=== PATIENT | female | born 1955 | race Caucasian/White ===

== ENCOUNTER → 2017-11-06 | Outpatient (CLI) | payer OTHER, MEDICAID ==
[2013-09-21 11:39] VITALS: BP 122/70
[2017-11-06 11:12] LABS: BASOPHILS # (AUTO) 0.1 X10^3/uL (0.0-0.1); EOSINOPHILS # (AUTO) 0.1 x10^3/uL (0.0-0.2); EOSINOPHILS % (AUTO) 1.2 % (0.9-2.9); HEMATOCRIT 43.3 % (36.0-47.0); HEMOGLOBIN 14.7 g/dL (12.0-16.0); LYMPHOCYTES # (AUTO) 2.1 X10^3/uL (1.3-2.9); MEAN CORPUSCULAR HEMOGLOBIN 31.8 pg (27.0-34.0); MEAN CORPUSCULAR VOLUME 93.7 fL (80.0-100.0); MEAN PLATELET VOLUME 8.7 fL (7.4-11.0); MONOCYTES # (AUTO) 0.6 x10^3/uL (0.3-0.8); MONOCYTES % (AUTO) 6.9 % (0.0-13.0); NEUTROPHILS # (AUTO) 5.2 x10^3/uL (2.2-4.8); NEUTROPHILS % (AUTO) 64.9 % (42.0-75.0); PLATELET COUNT 182 X10^3/uL (150.0-450.0); RED BLOOD COUNT 4.62 X10^6/uL (3.5-5.4); RED CELL DISTRIBUTION WIDTH 14.6 % (11.6-16.5); WHITE BLOOD COUNT 8.1 X10^3/uL (3.6-10.0)
--- NOTE | 2017-11-06 11:19 | MRI ---
HISTORY: Low back pain radiating into bilateral lower extremities Study: MRI lumbar spine without contrast Comparison: None Technique: Multiplanar multi-sequence MRI of the lumbar spine was obtained. Sagittal T1, sagittal T2 , and stir weighted images, axial T1, and axial T2 images were obtained. Findings: Imaging of the lumbar spine demonstrates mild, grade 1, retrolisthesis of L4 on L5, likely secondary to advanced facet arthropathy and degenerative disc disease at this level. There is moderate leftward curvature of the lumbar spine noted. There is a mild compression deformity involving the L4 superior endplate with approximately 10% loss of vertebral body height centrally. T2/STIR hyperintense signal parallels the depressed L4 superior endplate, suggesting that the compression fracture is acute to e catalino subacute in age. T2/STIR hyperintense signal paralleling the L4 superior endplate could also rep resent reactive edema associated with spondylosis with advanced degenerative endplate change. There i s also reactive edema associated with advanced degenerative endplate change paralleling the L3 inferi or endplate. Mild reactive edema is also identified within the L5 superior endplate. The conus termin ates at the L2 level. Evaluation of the pre and paravertebral soft tissues is unremarkable. There saira ears to be a 1.7 cm T2 hyperintense nodule within the right adrenal gland, possibly representing an a drenal adenoma. However, correlation with adrenal protocol CT versus MRI is recommended when feasible . T12 -- L1: At the T12-L1 level there is advanced facet hypertrophy and ligamentum flavum thickening w ithout significant canal stenosis or neuroforaminal compromise. L1 -- L2: At the L1-L2 level there is a broad-based disc bulge as well as advanced facet hypertrophy and ligamentum flavum thickening, resulting in [id number] canal stenosis as well as moderate ne uroforaminal compromise on the right and mild neuroforaminal compromise on the left. L2 -- L3: At the L2-L3 level there is a right lateral recess disc protrusion superimposed upon a broa d-based disc bulge as well as advanced facet hypertrophy and ligamentum flavum thickening, all result ing in moderate canal stenosis as well as moderate neuroforaminal compromise on the right and mild-to -moderate neuroforaminal compromise on the left. L3 -- L4: At the L3-L4 level there is a broad-based disc bulge as well as advanced facet hypertrophy and ligamentum flavum thickening, all resulting in moderate canal stenosis as well as moderate to sev ere neuroforaminal compromise on the right and mild neuroforaminal compromise on the left. L4 -- L5: At the L4-L5 level there is a large left paracentral and left lateral recess disc protrusio n superimposed upon a broad-based disc bulge as well as advanced facet hypertrophy and ligamentum fla vum thickening, all resulting in moderate to severe canal stenosis as well as severe neuroforaminal c ompromise on the left and severe left lateral recess stenosis. There is also moderate neuroforaminal compromise on the right. L5 -- S1: At the L5-S1 level there is a broad-based disc bulge as well as advanced facet hypertrophy and ligamentum flavum thickening, resulting in mild canal stenosis as well as moderate neuroforaminal compromise on the left and mild neuroforaminal compromise on the right. IMPRESSION: 1. Multilevel advanced facet arthropathy and multilevel degenerative disc disease as detailed above, most significant at the L4-L5 level, where there is severe neuroforaminal compromise on the left and severe left lateral recess stenosis as well as moderate to severe canal stenosis and moderate neurofo raminal compromise on the right. 2. Compression deformity involving the L4 superior endplate. Please see above discussion. Reported By:
[2017-11-06 11:21] LABS: CREATININE,URINE 177.02 mg/dL (29-226); MICROALBUMIN,URINE 15.5 mg/L
[2017-11-06 11:27] LABS: ALANINE AMINOTRANSFERASE 27 Units/L (12-78); ALKALINE PHOSPHATASE 91 Units/L (46-116); ASPARTATE AMINO TRANSFERASE 16 Units/L (15-37); BLOOD UREA NITROGEN 13 mg/dL (7-18); CALCIUM 8.9 mg/dL (8.5-10.1); CARBON DIOXIDE 29.7 mmol/L (21-32); CHLORIDE 101 mmol/L (98-107); CHOL/HDL RATIO 4.7 (0.0-5.0); CHOLESTEROL 212 mg/dL (0-200); COR NA(FOR HYPERGLY) 142 mmol/L (136-145); CREATININE 0.84 mg/dL (0.55-1.02); HDL CHOLESTEROL 45 mg/dL (40-60); SODIUM 139 mmol/L (136-145); TRIGLYCERIDES 154 mg/dL (0-150); eGFR BLACK RACES > 60 (>60); eGFR NON BLACK RACES > 60 (>60)
--- NOTE | 2017-11-06 11:44 | MRI ---
HISTORY: Neck pain that radiates into bilateral upper extremities Study: MRI cervical spine without contrast Comparison: None Technique: Multiplanar multisequence MRI of the cervical spine was obtained utilizing standard [facility] protocol. Findings: Imaging of cervical spine demonstrates very mild, grade 1, anterolisthesis of C4 on C5. There is also minimal retrolisthesis of C5 on C6 as well. There is loss of the normal cervical lordosis which may be secondary to patient positioning versus muscle spasm and/or degenerative change or combination of both. Moderate to severe loss of disc space height is present at the C5-C6 level and moderate loss of disc space height is present at the C6-C7 level. There are advanced degenerative endplate changes at these levels as well. Mild reactive edema associated with degenerative endplate change is also visua lized at the C6-C7 level. There is abnormal T2/STIR hyperintense signal within the right and left asp ects of the dorsal cervical cord at the C5 level. Additional abnormal foci of T2/STIR hyperintense si gnal are identified within the right and left aspects of the cord at the C6 level. This abnormal cerv ical cord signal could reflect spondylitic myelomalacia given spondylosis at these levels. Demyelinat ing disease is less favored but not entirely excluded. Evaluation of the pre and paravertebral soft t issues is unremarkable. The visualized posterior fossa is grossly unremarkable as well. Degenerative changes involving the atlantoaxial joint are incidentally noted. C2 -- C3: At the C2-C3 level there is very mild facet hypertrophy without significant canal stenosis or neuroforaminal compromise. C3 -- C4: At the C3-C4 level there is minimal right facet hypertrophy without significant canal steno sis or neuroforaminal compromise. C4 -- C5: At the C4-C5 level there is a small left paracentral disc osteophyte which, along with mild listhesis at this level, is resulting in very mild canal stenosis. C5 -- C6: At the C5-C6 level there is a broad-based disc osteophyte complex and uncovertebral spurrin g which, along with listhesis at this level, are resulting in moderate canal stenosis with effacement of the ventral epidural space and flattening of the cervical cord. There is also moderate to severe bilateral neuroforaminal compromise. The above described abnormal T2/STIR hyperintense signal within the cervical cord is located just below and just above this level of stenosis. C6 -- C7: At the C6-C7 level there is a rather large left lateral recess disc osteophyte or disc prot rusion superimposed upon broad-based disc ridging and uncovertebral spurring, resulting in moderate t o severe neuroforaminal compromise on the left and rstl-[id number] canal stenosis. C7 -- T1: At the C7-T1 level there is uncovertebral spurring and broad-based disc ridging as well as mild facet hypertrophy, resulting in minimal neuroforaminal compromise on the right but no significan t canal stenosis. IMPRESSION: 1. Multilevel degenerative disc disease and facet arthropathy as detailed above, most significant at the C5-C6 level, where there is moderate canal stenosis as well as moderate to severe bilateral neuro foraminal compromise. There is abnormal T2/STIR hyperintense signal within the cervical cord just abo ve and just below this level of canal stenosis, suggesting that the abnormal cord signal likely refle cts spondylitic myelomalacia. Moderate to severe neuroforaminal compromise on the left and mild-to-mo derate canal stenosis are also noted at the C6-C7 level. Reported By:
--- NOTE | 2017-11-06 11:53 | RAD ---
HISTORY: Neck pain Study: Three views of the cervical spine Comparison: None Findings: Images demonstrate straightening with slight reverse curvature of the cervical spine. Minimal grade 1 retrolisthesis of C5 on C6 is noted. Degenerate facet changes are seen throughout the cervical spine . Intervertebral disc space narrowing is noted at C5/C6 and C6/C7. Mild multilevel osteophytosis is d emonstrated as well. The odontoid is partially obscured. IMPRESSION: 1. Degenerative changes as noted above. Reported By:
[2017-11-06 11:58] LABS: ERYTHROCYTE SEDIMENTATION RATE 13 MM/HOUR (0-20)
--- NOTE | 2017-11-06 12:18 | RAD ---
HISTORY: Back pain Study: Three views of the lumbar spine Comparison: MRI of the lumbar spine also performed today on November 06, 2017 Findings: Images demonstrate 5 [id number] lumbar vertebral bodies. A mild compression deformity of the L4 vertebral body is noted. See report from accompanying MRI of the lumbar spine also performed today on November 06, 2017 for further discussion. Otherwise the remaining lumbar vertebral body heights are rel atively maintained. Degenerate facet changes are seen throughout the lumbar spine. Multilevel interve rtebral disc space narrowing is noted and is most pronounced at L3/L4, L4/L5, and L5/S1. Mild multile leanna osteophytosis is also noted. Atherosclerotic changes are seen within the visualized aorta. IMPRESSION: Mild compression deformity of the L4 vertebral body as noted above. Multilevel degenerative changes as discussed above. Reported By:
--- NOTE | 2017-11-06 12:21 | RAD ---
HISTORY: Pain Study: Three views of the thoracic spine Comparison: None Findings: Images demonstrate 12 rib-bearing thoracic vertebral bodies. The thoracic vertebral body heights are relatively maintained. No evidence of significant subluxation is identified. Mild degenerate facet ch anges are seen throughout the thoracic spine. IMPRESSION: 1. Mild degenerative changes as noted above. Reported By:
== END | disposition home or self-care (01) | DRG 554 ==
LOC: RAD 08:35
PROVIDERS: ATTEND Nurse Practitioner Family
DX: M15.8 Other polyosteoarthritis (principal); E11.9 Type 2 diabetes mellitus without complications; M51.36 Other intervertebral disc degeneration, lumbar region; M50.322 Other cervical disc degeneration at C5-C6 level; R79.82 Elevated C-reactive protein (CRP); M54.5 Low back pain
CPT/HCPCS: 36415; 72040; 72072; 72100; 72141; 72148; 80053; 80061; 82043; 85025; 85652; 86140

== ENCOUNTER 2021-03-20 21:25 | Inpatient (IN) ==
[2021-03-20 21:50] VITALS: BMI 22.2
[2021-03-20 22:36] LABS: ABG ALLEN TEST POS; ABG BASE EXCESS 1.1 mmol/L (-2.0-2.0); ABG HCO3 25.1 mmol/L (22-26)
--- NOTE | 2021-03-20 22:39 | DR.URIAD ---
HPI Time Seen Time Seen by Provider: 03/20/21 22:39 PCP Primary Care Physician: jamal Complaint Chief Complaint Doctors Comments: INCREASING WEAKNESS, COUGH AND SOB TIMES SEVERAL DAYS. Chief Complaint:: COUGH, DIARRHEA, WEAK SINCE LAST FRIDAY. SAW MD ON LAST FRIDAY. FINISHED Z RICHARD AND PREDNISONE. UNKNOWN COVID STATUS Self Treatment fo Chief Complaint: MEDS GIVEN BY COVID-19 Coronavirus risk:travel/contact w/high risk person: Yes Has patient experienced Coronavirus symptoms: Yes Coronavirus symptoms experienced: Coughing and Shortness of Breath Reviewed Nurses Notes Reviewed: Yes Source History Provided: Patient Mode of Arrival Mode of Arrival: Wheelchair Timing Onset of Chief Complaint: 03/10/21 Quality Shortness of Breath: Moderate PMH PMH Past Medical History: Yes Past Medical History: Diabetes Past Medical History Comment: CANCER, COLON, LIVER, LUNG, Past Surgical History: Yes Surgical History: Cholecystectomy Past Surgical History Comment: PART OF RT LUNG REMOVED. LIVER SECTIONS REMOVED. COLON RESECTION Family History History of Family Medical Conditions: Yes Social History Does patient currently use any type of tobacco product: Yes Have you used tobacco products in the last 12 months: Yes Type of Tobacco Use: Cigarettes Does any household member use tobacco: Yes Alcohol Use: None Do you use any recreational Drugs:: No Lives With: Family Lives Where: Home Travel Risk Coronavirus risk:travel/contact w/high risk person: Yes Has patient experienced Coronavirus symptoms: Yes Coronavirus symptoms experienced: Coughing and Shortness of Breath Infectious screening In the last 2 months have you had wt loss of >10#?: NO Have you had fever, night sweats or hemotysis?: No Have you traveled outside the country in the last 6 months?: No Isolation: Airborn/Negative Pressure ROS Review of Systems Constitutional: No Symptoms Reported and See HPI Eyes: No Symptoms Reported and See HPI ENTM: No Symptoms Reported and See HPI Respiratoy: No Symptoms Reported and See HPI Cardiovascular: No Symptoms Reported and See HPI Gastrointestinal/Abdominal: No Symptoms Reported and See HPI Genitourinary: No Symptoms Reported and See HPI Neurological: No Symptoms Reported and See HPI Musculoskeletal: No Symptoms Reported and See HPI Integumentary: No Symptoms Reported and See HPI Hematologic/Lymphatic: No Symptoms Reported and See HPI Endocrine: No Symptoms Reported and See HPI Psychiatric: No Symptoms Reported and See HPI All Other Systems: Reviewed and Negative PE Vital Signs Vitals: Temperature 98.6 F Pulse Rate [Right] 96 Pulse Rate 92 Respiratory Rate 28 Blood Pressure [Right Arm] 173/77 Blood Pressure 149/70 O2 Sat by Pulse Oximetry 91 General Limitations: No Limitations General Appearance: Alert and In No Apparent Distress Head Head Exam: Normal Inspection Eyes Eye exam: Normal Appearance ENT ENT Exam: Normal Exam External Ear Exam: Normal External Inspection TM/Canal Exam: Bilateral: Normal Nose Exam: Normal Nose Exam Nasal Speculum Exam: Bilateral: Normal Mouth Exam: Normal Inspection Throat Exam: Normal Inspection Neck Neck Exam: Normal Inspection Chest Chest Inspection: Normal Inspection Respiratory Respiratory Exam: Normal Lung Sounds Bilat Respiratory Exam: Bilateral: Clear to Auscultation Cardiovascular Cardiovascular Exam: Regular Rate and Normal Rhythm Abdominal Exam Abdominal Exam: Normal Inspection, Normal Bowel Sounds and Soft Extremeties Extremities Exam: Normal Inspection Back Back Exam: Normal Inspection Neurologic Neurological Exam: Alert and Oriented X3 Psychiatric Psychiatric Exam: Normal Affect and Normal Mood Skin Skin Exam: Warm, Dry, Intact and Normal Color ROR Labs Reviewed Result Diagrams: 03/20/21 22:55 03/20/21 22:55 Laboratory: WBC 9.2 X10^3/uL (3.6-10.0) 03/20/21 22:55 RBC 4.40 X10^6/uL (3.5-5.4) 03/20/21 22:55 Hgb 14.0 g/dL (12.0-16.0) 03/20/21 22:55 Hct 41.3 % (36.0-47.0) 03/20/21 22:55 MCV 93.7 fL (80.0-100.0) 03/20/21 22:55 MCH 31.8 pg (27.0-34.0) 03/20/21 22:55 MCHC 33.9 g/dL (33.0-35.0) 03/20/21 22:55 RDW 14.7 % (11.6-16.5) 03/20/21 22:55 Plt Count 201 X10^3/uL (150.0-450.0) 03/20/21 22:55 MPV 8.7 fL (7.4-11.0) 03/20/21 22:55 Neut % (Auto) 81.1 % (42.0-75.0) H 03/20/21 22:55 Lymph % (Auto) 10.4 % (21.0-51.0) L 03/20/21 22:55 Ramsey % (Auto) 8.3 % (0.0-13.0) 03/20/21 22:55 Eos % (Auto) 0.1 % (0.9-2.9) L 03/20/21 22:55 Baso % (Auto) 0.1 % (0.2-1.0) L 03/20/21 22:55 Neut # (Auto) 7.5 x10^3/uL (2.2-4.8) H 03/20/21 22:55 Lymph # (Auto) 1.0 X10^3/uL (1.3-2.9) L 03/20/21 22:55 Ramsey # (Auto) 0.8 x10^3/uL (0.3-0.8) 03/20/21 22:55 Eos # (Auto) 0.0 x10^3/uL (0.0-0.2) 03/20/21 22:55 Baso # (Auto) 0.0 X10^3/uL (0.0-0.1) 03/20/21 22:55 Absolute Nucleated RBC 0.0 /100WBC 03/20/21 22:55 D-Dimer 1.52 ug/ml (0.0-0.57) H* 03/20/21 22:55 Sample Site Lr 03/20/21 22:32 ABG pH 7.440 (7.35-7.45) 03/20/21 22:32 ABG pCO2 37.0 mmHg (35.0-45.0) 03/20/21 22:32 ABG pO2 50.0 mmHg (80.0-100.0) L 03/20/21 22:32 ABG HCO3 25.1 mmol/L (22-26) 03/20/21 22:32 ABG O2 Saturation 87.0 % (90-100) L 03/20/21 22:32 ABG Base Excess 1.1 mmol/L (-2.0-2.0) 03/20/21 22:32 Say Test Pos 03/20/21 22:32 A-a Gradient 53.0 mmHg 03/20/21 22:32 FiO2 21.0 03/20/21 22:32 Blood Gas Comments Maribell well ae 03/20/21 22:32 Sodium 134 mmol/L (136-145) L 03/20/21 22:55 Corrected Sodium 139 mmol/L (136-145) 03/20/21 22:55 Potassium 3.3 mmol/L (3.5-5.1) L 03/20/21 22:55 Chloride 95 mmol/L (98-107) L 03/20/21 22:55 Carbon Dioxide 24.9 mmol/L (21-32) 03/20/21 22:55 BUN 22 mg/dL (7-18) H 03/20/21 22:55 Creatinine 0.88 mg/dL (0.55-1.02) 03/20/21 22:55 Est GFR (MDRD) Af Amer > 60 (>60) 03/20/21 22:55 Est GFR (MDRD) Non-Af > 60 (>60) 03/20/21 22:55 Glucose 319 mg/dL (65-99) H 03/20/21 22:55 Calcium 8.8 mg/dL (8.5-10.1) 03/20/21 22:55 Corrected Calcium 9.9 mg/dL (8.5-10.1) 03/20/21 22:55 Ferritin 1318 ng/mL (8-252) H 03/20/21 22:55 Total Bilirubin 0.70 mg/dL (0.2-1.0) 03/20/21 22:55 AST 23 Units/L (15-37) 03/20/21 22:55 ALT 21 Units/L (12-78) 03/20/21 22:55 Alkaline Phosphatase 52 Units/L (46-116) 03/20/21 22:55 C-Reactive Protein 281.30 mg/L (0-3.0) H 03/20/21 22:55 B-Natriuretic Peptide 242 pg/mL (0-79) H 03/20/21 22:55 Total Protein 7.4 g/dL (6.4-8.2) 03/20/21 22:55 Albumin 2.6 g/dL (3.4-5.0) L 03/20/21 22:55 Globulin 4.8 g/dL (2.5-4.5) H 03/20/21 22:55 Albumin/Globulin Ratio 0.5 Ratio (1.1-2.1) L 03/20/21 22:55 Opioid Opioid Risk Tool Age (Bradley box if 16-45): No History of Preadolescent Sexual Abuse: No Total: 0 Total Score Risk Category: Low Risk Copyright: Monk predicting aberrant behaviors Diagnosis Discharge Problem: Hypoxia Pneumonia Qualifiers: Pneumonia type: due to unspecified organism Laterality: bilateral Lung location : lower lobe of lung Qualified Code(s): J18.9 - Pneumonia, unspecified organism Instructions Forms: Precautions for COVID19 [facility] Portal Social Distancing
[2021-03-20 23:18] LABS: BASOPHILS % (AUTO) 0.1 % (0.2-1.0); EOSINOPHILS % (AUTO) 0.1 % (0.9-2.9); HEMATOCRIT 41.3 % (36.0-47.0); LYMPHOCYTES % (AUTO) 10.4 % (21.0-51.0); MEAN CORPUSCULAR HEMOGLOBIN 31.8 pg (27.0-34.0); MEAN CORPUSCULAR HGB CONC 33.9 g/dL (33.0-35.0); MEAN CORPUSCULAR VOLUME 93.7 fL (80.0-100.0); MEAN PLATELET VOLUME 8.7 fL (7.4-11.0); MONOCYTES # (AUTO) 0.8 x10^3/uL (0.3-0.8); MONOCYTES % (AUTO) 8.3 % (0.0-13.0); NEUTROPHILS # (AUTO) 7.5 x10^3/uL (2.2-4.8); NEUTROPHILS % (AUTO) 81.1 % (42.0-75.0); PLATELET COUNT 201 X10^3/uL (150.0-450.0); RED CELL DISTRIBUTION WIDTH 14.7 % (11.6-16.5); WHITE BLOOD COUNT 9.2 X10^3/uL (3.6-10.0)
[2021-03-20 23:29] LABS: ALANINE AMINOTRANSFERASE 21 Units/L (12-78); ALBUMIN 2.6 g/dL (3.4-5.0); ALKALINE PHOSPHATASE 52 Units/L (46-116); ASPARTATE AMINO TRANSFERASE 23 Units/L (15-37); BLOOD UREA NITROGEN 22 mg/dL (7-18); CALCIUM 8.8 mg/dL (8.5-10.1); CARBON DIOXIDE 24.9 mmol/L (21-32); CHLORIDE 95 mmol/L (98-107); COR CA(FOR HYPOALB) 9.9 mg/dL (8.5-10.1); COR NA(FOR HYPERGLY) 139 mmol/L (136-145); CREATININE 0.88 mg/dL (0.55-1.02); SODIUM 134 mmol/L (136-145); TOTAL PROTEIN 7.4 g/dL (6.4-8.2); eGFR NON BLACK RACES > 60 (>60)
--- NOTE | 2021-03-21 01:56 | CT ---
HISTORYSOB, ELEVATED D-DIMERSTUDYCTA CHESTCOMPARISONChest radiograph 03/20/2021TECHNIQUEMultiple axial images of the chest were obtained from the thoracic inlet to the upper abdomen after the administration of IV contrast. 3D reconstructions utilizing axial MIPS imaging was performed and reviewed. Dose reduction techniques including Automated Exposure Control (AEC) and adjustment of mA and kV were utilized.FINDINGSThe mediastinum does not demonstrate significant pathological lymphadenopathy. There is no paracardial effusion observed. Coronary artery calcification. The thoracic aorta is normal in its contour without evidence for aneurysmal dilatation. The central pulmonary arterial system does not demonstrate central filling defects to suggest pulmonary emboli.Evaluation of the lung parenchyma demonstrates marked emphysematous changes throughout the lungs. Atelectasis and/or consolidation involving portions of the a left lingular and left lower lobes. A there are patchy parenchymal opacities within the right and left lower lobes. Parenchymal scarring and calcification noted within the right upper lobe. No pleural effusion or pneumothorax.. The bony thorax is unremarkable in its appearance. Low-attenuation lesion with peripheral calcification present within the right lobe of the liver..IMPRESSIONUnremarkable CTA of the thoracic aorta and pulmonary arteries.Emphysematous changes throughout the lungs.Atelectasis and/or consolidation involving portions of the left lingular and left lower lobes.Patchy parenchymal opacities within the right and left lower lobe consistent with multifocal pneumonia.Chronic pleural parenchymal scarring fibrosis and calcification within the right upper lobe.Low-attenuation lesion with peripheral calcification within the right lobe of the liver. Finding may be related to prior surgery or known hepatic neoplasm. Comparison with prior studies would be helpful in further evaluation.Electronically signed by: Channing Mcpherson (Mar 21, 2021 01:54:45)
[2021-03-21] MEDS ORDERED: DUONEB 0.5 MG/3 MG (3 mL) NEB ONE ×2 (02:39→02:51)
[2021-03-21] MEDS ORDERED: SOLU-Medrol 125 MG VIAL IVP ONE (02:39)
[2021-03-21] MEDS ORDERED: FORTAZ or TAZICEF VIAL INJ IM ONE (02:41)
[2021-03-21] MEDS ORDERED: FORTAZ or TAZICEF VIAL INJ ONE (02:46)
[2021-03-21] MEDS ORDERED: SOLU-Medrol 125 MG VIAL ONE (02:46)
[2021-03-21] MEDS ORDERED: NS 1/2 1000 ML IV 1,000 ML IV ONE (02:47)
[2021-03-21] MEDS ORDERED: NS 100 ML IV + SPIKE MINIBAG* 100 ML IV ONE (02:49)
[2021-03-21] MEDS ORDERED: FORTAZ or TAZICEF VIAL INJ 1 G in NS 100 ML IV + SPIKE MINIBAG* 100 ML IV ONE (02:52)
[2021-03-21] MEDS: NS 1/2 1000 ML IV 1,000 ML IV SCH ×2 (03:06→16:45)
--- NOTE | 2021-03-21 05:08 | RAD ---
HISTORYSOB, DIARRHEA, FATIGUE Relevant Clinical InformationSTUDYCHEST, 1 VIEWCOMPARISONNoneFINDINGSThe trachea is midline. The cardiac silhouette is unremarkable. Patchy parenchymal opacity within the right and left lower lung james. There is parenchymal scarring within the right upper lobe. No pneumothorax. The bony thorax is unremarkable.IMPRESSIONPatchy infiltrates within the right and left lung bases.Electronically signed by: Channing Mcpherson (Mar 21, 2021 05:06:45)
[2021-03-21] MEDS ORDERED: TUSSIONEX PENNKINETIC SUSP PO PRN (06:06)
[2021-03-21 06:52] LABS: BASOPHILS % (AUTO) 0.2 % (0.2-1.0); LYMPHOCYTES # (AUTO) 0.4 X10^3/uL (1.3-2.9); LYMPHOCYTES % (AUTO) 4.1 % (21.0-51.0); MEAN CORPUSCULAR HGB CONC 34.1 g/dL (33.0-35.0); MEAN CORPUSCULAR VOLUME 93.8 fL (80.0-100.0); MEAN PLATELET VOLUME 8.2 fL (7.4-11.0); MONOCYTES # (AUTO) 0.3 x10^3/uL (0.3-0.8); MONOCYTES % (AUTO) 3.6 % (0.0-13.0); NEUTROPHILS # (AUTO) 8.9 x10^3/uL (2.2-4.8); NEUTROPHILS % (AUTO) 92.1 % (42.0-75.0); PLATELET COUNT 195 X10^3/uL (150.0-450.0); RED BLOOD COUNT 4.37 X10^6/uL (3.5-5.4); RED CELL DISTRIBUTION WIDTH 14.7 % (11.6-16.5); WHITE BLOOD COUNT 9.6 X10^3/uL (3.6-10.0)
[2021-03-21 07:00] LABS: ALANINE AMINOTRANSFERASE 24 Units/L (12-78); ALKALINE PHOSPHATASE 54 Units/L (46-116); ASPARTATE AMINO TRANSFERASE 24 Units/L (15-37); BLOOD UREA NITROGEN 20 mg/dL (7-18); CALCIUM 8.8 mg/dL (8.5-10.1); CARBON DIOXIDE 19.5 mmol/L (21-32); CHLORIDE 95 mmol/L (98-107); COR NA(FOR HYPERGLY) 140 mmol/L (136-145); CREATININE 0.78 mg/dL (0.55-1.02); SODIUM 134 mmol/L (136-145); TOTAL PROTEIN 7.4 g/dL (6.4-8.2); eGFR NON BLACK RACES > 60 (>60)
[2021-03-21] MEDS ORDERED: NS 1/2 1000 ML IV 1,000 ML IV SCH (07:00)
[2021-03-21 07:19] LABS: ALBUMIN 2.4 g/dL (3.4-5.0); COR CA(FOR HYPOALB) 10.1 mg/dL (8.5-10.1)
[2021-03-21 07:25] LABS: BAND NEUTROPHILS % 7 % (0-10); PLATELET MORPHOLOGY COMMENT NORMAL (NORMAL)
[2021-03-21] MEDS ORDERED: LEVAQUIN PREMIX IV 750 MG 750 MG/150 ML BAG IV ONE (08:32)
[2021-03-21] MEDS ORDERED: ROBITUSSIN DM ONE ×3 (08:32→16:39)
[2021-03-21] MEDS: LEVAQUIN PREMIX IV 750 MG 750 MG/150 ML BAG IV SCH (08:46)
[2021-03-21] MEDS: ROBITUSSIN DM PO SCH ×4 (08:47→20:38)
[2021-03-21] MEDS: VSL#3 PO SCH (08:47)
[2021-03-21] MEDS: PULMICORT NEB TX 0.5 MG NEB SCH ×2 (09:15→21:35)
[2021-03-21] MEDS ORDERED: REMDESIVIR 200 MG in NS 250 ML IV 250 ML IV ONE (12:00)
[2021-03-21] MEDS ORDERED: VITAMIN A PO SCH (12:10)
[2021-03-21] MEDS ORDERED: VITAMIN D (1.25MG) PO SCH (12:10)
[2021-03-21] MEDS ORDERED: LOVENOX INJ 30 MG SYR SC SCH (12:10)
[2021-03-21] MEDS ORDERED: LOVENOX INJ 40 MG SYR SC ONE (12:40)
[2021-03-21] MEDS ORDERED: ZINC SULFATE ONE (12:40)
[2021-03-21] MEDS ORDERED: REMDESIVIR IV ONE (12:41)
[2021-03-21] MEDS ORDERED: SOLU-Medrol 40 MG VIAL ONE (12:41)
[2021-03-21] MEDS ORDERED: VITAMIN D3 125 mcg (5,000 UNITS) ONE (12:41)
[2021-03-21] MEDS ORDERED: TRICOR TAB 160 MG ONE (12:41)
[2021-03-21] MEDS ORDERED: PEPCID TAB 40 MG ONE (12:41)
[2021-03-21] MEDS ORDERED: NS 250 ML IV 250 ML IV ONE (12:42)
[2021-03-21] MEDS ORDERED: NS 100 ML IV 100 ML ONE (12:42)
[2021-03-21] MEDS ORDERED: ASCORBIC ACID INJ MULTI-DOSE VIAL IV ONE (12:42)
[2021-03-21] MEDS: ASCORBIC ACID INJ MULTI-DOSE VIAL 1,500 MG in NS 100 ML IV 100 ML IV SCH ×3 (12:53→20:38)
[2021-03-21] MEDS: LOVENOX INJ 40 MG SYR SC SCH ×2 (12:53→20:38)
[2021-03-21] MEDS: ZINC SULFATE PO SCH ×2 (12:54→20:39)
[2021-03-21] MEDS: PEPCID TAB 40 MG PO SCH ×2 (12:54→20:38)
[2021-03-21] MEDS: TRICOR TAB 160 MG PO SCH (12:54)
[2021-03-21] MEDS: VITAMIN D3 125 mcg (5,000 UNITS) PO SCH (12:55)
[2021-03-21] MEDS ORDERED: ACTEMRA 400 MG in NS 100 ML IV 80 ML IV ONE (13:45)
[2021-03-21] MEDS ORDERED: SOLU-Medrol 125 MG VIAL IVP SCH (14:00)
[2021-03-21] MEDS ORDERED: SOLU-Medrol 40 MG VIAL IVP SCH (14:00)
[2021-03-21] MEDS: ACCUNEB 1.25 MG NEBULE NEB SCH ×2 (14:10→21:35)
[2021-03-21] MEDS ORDERED: XANAX PO PRN (16:55)
[2021-03-21] MEDS ORDERED: NORCO 10/325 TAB PO PRN (16:55)
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
[2021-03-21] MEDS: HumuLIN R SUBCUT PRN ×2 (18:20→22:08)
[2021-03-21] MEDS ORDERED: SNACK - Diabetic Appropriate PO SCH (20:00)
[2021-03-21] MEDS: SNACK - Diabetic Appropriate PO SCH (20:37)
[2021-03-21] MEDS: SOLU-Medrol 125 MG VIAL IVP SCH (20:39)
[2021-03-22] MEDS: ASCORBIC ACID INJ MULTI-DOSE VIAL 1,500 MG in NS 100 ML IV 100 ML IV SCH ×4 (02:10→21:00)
[2021-03-22] MEDS: NS 1/2 1000 ML IV 1,000 ML IV SCH ×2 (05:01→18:17)
[2021-03-22 05:20] LABS: ALANINE AMINOTRANSFERASE 23 Units/L (12-78); ALBUMIN 2.4 g/dL (3.4-5.0); ALKALINE PHOSPHATASE 56 Units/L (46-116); ASPARTATE AMINO TRANSFERASE 20 Units/L (15-37); BLOOD UREA NITROGEN 24 mg/dL (7-18); CALCIUM 8.6 mg/dL (8.5-10.1); CARBON DIOXIDE 27.1 mmol/L (21-32); CHLORIDE 101 mmol/L (98-107); COR CA(FOR HYPOALB) 9.9 mg/dL (8.5-10.1); COR NA(FOR HYPERGLY) 141 mmol/L (136-145); CREATININE 0.89 mg/dL (0.55-1.02); SODIUM 137 mmol/L (136-145); TOTAL PROTEIN 6.9 g/dL (6.4-8.2); eGFR NON BLACK RACES > 60 (>60)
[2021-03-22 05:37] LABS: BASOPHILS % (AUTO) 0.1 % (0.2-1.0); HEMATOCRIT 37.2 % (36.0-47.0); HEMOGLOBIN 12.7 g/dL (12.0-16.0); LYMPHOCYTES # (AUTO) 0.6 X10^3/uL (1.3-2.9); LYMPHOCYTES % (AUTO) 9.8 % (21.0-51.0); MEAN CORPUSCULAR HEMOGLOBIN 31.6 pg (27.0-34.0); MEAN CORPUSCULAR HGB CONC 34.1 g/dL (33.0-35.0); MEAN CORPUSCULAR VOLUME 92.8 fL (80.0-100.0); MONOCYTES # (AUTO) 0.5 x10^3/uL (0.3-0.8); MONOCYTES % (AUTO) 8.2 % (0.0-13.0); NEUTROPHILS # (AUTO) 5.1 x10^3/uL (2.2-4.8); NEUTROPHILS % (AUTO) 81.9 % (42.0-75.0); PLATELET COUNT 218 X10^3/uL (150.0-450.0); RED BLOOD COUNT 4.02 X10^6/uL (3.5-5.4); RED CELL DISTRIBUTION WIDTH 14.6 % (11.6-16.5); WHITE BLOOD COUNT 6.3 X10^3/uL (3.6-10.0)
[2021-03-22] MEDS ORDERED: K-RIDER 10 MEQ/NS 100 ML 10 MEQ/100 ML BAG IV PRN (05:44)
[2021-03-22] MEDS: HumuLIN R SUBCUT PRN ×3 (05:44→21:30)
[2021-03-22] MEDS ORDERED: MAGNESIUM SULFATE 1 GRAM/100 mL PREMIX 1 GM/100 ML BAG IV PRN (05:44)
[2021-03-22] MEDS ORDERED: KLOR-CON PO PRN (05:44)
[2021-03-22] MEDS ORDERED: POTASSIUM CHL 40 MEQ/NS 0.45% 500 ML IV PRN (05:44)
[2021-03-22] MEDS ORDERED: POTASSIUM CHLORIDE LIQ 20 MEQ UDC PO PRN (05:44)
[2021-03-22] MEDS ORDERED: MICRO K EXTEN CAP 10 MEQ PO PRN (05:44)
[2021-03-22] MEDS ORDERED: POTASSIUM CHL 60 MEQ/NS 0.45% 500 ML IV PRN (05:44)
[2021-03-22] MEDS: K-DUR TAB 20 MEQ PO PRN (06:12)
[2021-03-22] MEDS: ACCUNEB 1.25 MG NEBULE NEB SCH ×3 (06:26→20:20)
--- NOTE | 2021-03-22 08:13 | RAD ---
HISTORYCOVID PNEUMONIASTUDYCHEST, 1 [id number] areas of opacity in the lung bases and left upper lung are consistent with bronchopneumonia. Including a linear area in the right upper lung. No significant change from 2 days ago.No pleural effusion or pneumothorax.Heart size is normal.Bones are unremarkable.IMPRESSION1. Unchanged bronchopneumoniaElectronically signed by: Stuart Mojica (Mar 22, 2021 08:11:20)
[2021-03-22] MEDS: LEVAQUIN PREMIX IV 750 MG 750 MG/150 ML BAG IV SCH (08:38)
[2021-03-22] MEDS: ROBITUSSIN DM PO SCH ×4 (08:41→21:00)
[2021-03-22] MEDS: VSL#3 PO SCH (08:42)
[2021-03-22] MEDS: TRICOR TAB 160 MG PO SCH (08:42)
[2021-03-22] MEDS: VITAMIN D3 125 mcg (5,000 UNITS) PO SCH (08:43)
[2021-03-22] MEDS: ZINC SULFATE PO SCH ×2 (08:44→21:00)
[2021-03-22] MEDS: PEPCID TAB 40 MG PO SCH ×2 (08:46→21:00)
[2021-03-22] MEDS: PULMICORT NEB TX 0.5 MG NEB SCH ×2 (09:10→20:20)
[2021-03-22] MEDS ORDERED: DIFLUCAN PO ONE (09:58)
[2021-03-22] MEDS: REMDESIVIR 100 MG in NS 250 ML IV 250 ML IV SCH (10:00)
[2021-03-22] MEDS: LOVENOX INJ 40 MG SYR SC SCH ×2 (10:00→21:00)
[2021-03-22] MEDS: SOLU-Medrol 125 MG VIAL IVP SCH ×2 (10:00→21:00)
--- NOTE | 2021-03-22 10:10 | PCM.PROG ---
Progress Note Progress Note for Day of Date of Exam: 03/22/21 Subjective Subjective: Pt is a 65 year old female past medical history of Breast/Colon cancer, Type 2 Diabetes mellitus, admitted for COVID-19 pneumonia with hypoxia. This morning she reports feeling better than yesterday. Her breathing has improved. She is currently utilizing 5L nasal cannula supplemental oxygen. She did receive Actemra 400mg x1 dose yesterday. Labs/imaging: Wbc 6.3, Hgb 12.7, Plt 218, Na 137, K 2.7, Creatinine 0.89, Glucose 273, A1c 8.7, CRP 281>199, CXR: Vague areas of opacity in the lung bases and left upper lung are consistent with bronchopneumonia. Including a linear area in the right upper lung. No significant change from 2 days ago. Pt is currently on pneumonia treatment protocol that includes: IVF 1/2 NS@30ml/h, Remdesivir, Solumedrol 80mg q12h, scheduled Bronchodilators, Antibiotics: IV Levaquin, immune supporting supplements, supplemental O2, SSI, I/S, Respiratory therapy consult, Pneumonia protocol. She has had significant hyperglycemia that is steroid induced. Will add Lantus 10 units along with her SSI as we continue IV Solumedrol. Continue to wean/titrate supplemental oxygen as tolerated. Will continue to monitor closely and follow up labs/imaging in the morning. Time spent on clinical assessment, reviewing labs and imaging, decision making, and documentation greater than 45 minutes. Past Medical Family Social History Past Med/Fam/Surg Hx: No changes since H&P Allergies: Allergies No Known Drug Allergies Allergy (Verified 03/20/21 23:09) Review of Systems ROS: No change since H&P Vital Signs and I&O's Vital Signs: Temperature 97.6 F Pulse Rate [Right] 58 Pulse Rate 75 Respiratory Rate 20 Blood Pressure [Right Arm] 128/59 Blood Pressure 149/67 O2 Sat by Pulse Oximetry 93 Intake and Output: Intake & Output 03/19/21 03/20/21 03/21/21 03/22/21 23:59 23:59 23:59 23:59 Intake Total 1900 / 1900 450 / 450 Balance 1900 / 1900 450 / 450 Physical Exam Oriented: Normal Eyes: Normal Ear: Normal Nose: Normal Throat: Normal Respiratory: Diminished and Rales Cardiovascular: Normal : Normal Auscultation: Bowel Sounds: Normal Tenderness: Normal Skin: Normal Musculoskeletal: Normal Psychiatric: Normal Mood Description: Calm Affect: Normal Speech Pattern: Clear and Appropriate Laboratory and Diagnostics Result Diagrams: 03/22/21 04:40 03/22/21 04:40 Labs: Laboratory WBC 6.3 X10^3/uL (3.6-10.0) 03/22/21 04:40 RBC 4.02 X10^6/uL (3.5-5.4) 03/22/21 04:40 Hgb 12.7 g/dL (12.0-16.0) 03/22/21 04:40 Hct 37.2 % (36.0-47.0) 03/22/21 04:40 MCV 92.8 fL (80.0-100.0) 03/22/21 04:40 MCH 31.6 pg (27.0-34.0) 03/22/21 04:40 MCHC 34.1 g/dL (33.0-35.0) 03/22/21 04:40 RDW 14.6 % (11.6-16.5) 03/22/21 04:40 Plt Count 218 X10^3/uL (150.0-450.0) 03/22/21 04:40 Plt Count Comment Adequate (ADEQUATE) 03/21/21 06:43 MPV 9.0 fL (7.4-11.0) 03/22/21 04:40 Neut % (Auto) 81.9 % (42.0-75.0) H 03/22/21 04:40 Lymph % (Auto) 9.8 % (21.0-51.0) L 03/22/21 04:40 [place] % (Auto) 8.2 % (0.0-13.0) 03/22/21 04:40 Eos % (Auto) 0.0 % (0.9-2.9) L 03/22/21 04:40 Baso % (Auto) 0.1 % (0.2-1.0) L 03/22/21 04:40 Neut # (Auto) 5.1 x10^3/uL (2.2-4.8) H 03/22/21 04:40 Lymph # (Auto) 0.6 X10^3/uL (1.3-2.9) L 03/22/21 04:40 [place] # (Auto) 0.5 x10^3/uL (0.3-0.8) 03/22/21 04:40 Eos # (Auto) 0.0 x10^3/uL (0.0-0.2) 03/22/21 04:40 Baso # (Auto) 0.0 X10^3/uL (0.0-0.1) 03/22/21 04:40 Absolute Nucleated RBC 0.0 /100WBC 03/22/21 04:40 Total Counted 100 03/21/21 06:43 Neutrophils % (Manual) 82 % (39-76) H 03/21/21 06:43 Band Neutrophils % 7 % (0-10) 03/21/21 06:43 Lymphocytes % (Manual) 9 % (13-43) L 03/21/21 06:43 Monocytes % (Manual) 2 % (4-9) L 03/21/21 06:43 Plt Morphology Comment Normal (NORMAL) 03/21/21 06:43 RBC Morphology Normal (NORMAL) 03/21/21 06:43 D-Dimer 1.52 ug/ml (0.0-0.57) H* 03/20/21 22:55 Sample Site Lr 03/20/21 22:32 ABG pH 7.440 (7.35-7.45) 03/20/21 22:32 ABG pCO2 37.0 mmHg (35.0-45.0) 03/20/21 22:32 ABG pO2 50.0 mmHg (80.0-100.0) L 03/20/21 22:32 ABG HCO3 25.1 mmol/L (22-26) 03/20/21 22:32 ABG O2 Saturation 87.0 % (90-100) L 03/20/21 22:32 ABG Base Excess 1.1 mmol/L (-2.0-2.0) 03/20/21 22:32 Say Test Pos 03/20/21 22:32 A-a Gradient 53.0 mmHg 03/20/21 22:32 FiO2 21.0 03/20/21 22:32 Blood Gas Comments Maribell well ae 03/20/21 22:32 Sodium 137 mmol/L (136-145) 03/22/21 04:40 Corrected Sodium 141 mmol/L (136-145) 03/22/21 04:40 Potassium 2.7 mmol/L (3.5-5.1) L* 03/22/21 04:40 Chloride 101 mmol/L (98-107) 03/22/21 04:40 Carbon Dioxide 27.1 mmol/L (21-32) 03/22/21 04:40 BUN 24 mg/dL (7-18) H 03/22/21 04:40 Creatinine 0.89 mg/dL (0.55-1.02) 03/22/21 04:40 Est GFR (MDRD) Af Amer > 60 (>60) 03/22/21 04:40 Est GFR (MDRD) Non-Af > 60 (>60) 03/22/21 04:40 Glucose 273 mg/dL (65-99) H 03/22/21 04:40 POC Glucose (mg/dL) 276 mg/dL (65-99) H 03/22/21 04:40 Hemoglobin A1c 8.7 % 03/21/21 06:43 Calcium 8.6 mg/dL (8.5-10.1) 03/22/21 04:40 Corrected Calcium 9.9 mg/dL (8.5-10.1) 03/22/21 04:40 Magnesium 2.5 mg/dL (1.7-2.9) 03/22/21 04:40 Ferritin 1318 ng/mL (8-252) H 03/20/21 22:55 Total Bilirubin 0.40 mg/dL (0.2-1.0) 03/22/21 04:40 AST 20 Units/L (15-37) 03/22/21 04:40 ALT 23 Units/L (12-78) 03/22/21 04:40 Alkaline Phosphatase 56 Units/L (46-116) 03/22/21 04:40 C-Reactive Protein 199.20 mg/L (0-3.0) H 03/22/21 04:40 B-Natriuretic Peptide 242 pg/mL (0-79) H 03/20/21 22:55 Total Protein 6.9 g/dL (6.4-8.2) 03/22/21 04:40 Albumin 2.4 g/dL (3.4-5.0) L 03/22/21 04:40 Globulin 4.5 g/dL (2.5-4.5) 03/22/21 04:40 Albumin/Globulin Ratio 0.5 Ratio (1.1-2.1) L 03/22/21 04:40 Plan (1) Pneumonia due to COVID-19 virus: Status: Acute Plan: ADMIT, SUPPLEMENTAL OXYGEN, NS AT 30 ML/HR, LEVAQUIN 750MG IV DAILY, REMDESIVIR 100MG IV DAILY, ASCORBIC ACID 1500MG IV Q6H, ALBUTEROL NEBS TID, PULMICORT NEBS BID, SOLU-MEDROL 80MG IV Q8H, LOVENOX 40MG SC Q12H, TRICOR 160MG PO DAILY, PEPCID 40MG PO BID, ROBITUSSIN DM 10ML PO QID, TUSSIONEX 5ML PO Q12H PRN, VSL 2 CAPS PO BID, VITAMIN A 10,000 UNITS PO DAILY, AND ZINC SULFATE 220MG PO BID. (2) Hypoxia: Status: Acute
[2021-03-22] MEDS: GLUCOPHAGE XR 24-HR PO SCH (11:00)
[2021-03-22] MEDS: LANTUS SC SCH (11:14)
[2021-03-22] MEDS: IMODIUM CAP 2 MG PO PRN ×2 (18:07→23:00)
[2021-03-22] MEDS: SNACK - Diabetic Appropriate PO SCH (20:00)
[2021-03-23] MEDS: ASCORBIC ACID INJ MULTI-DOSE VIAL 1,500 MG in NS 100 ML IV 100 ML IV SCH ×4 (03:24→20:08)
[2021-03-23] MEDS ORDERED: NS 1/2 1000 ML IV 1,000 ML IV ONE (04:10)
[2021-03-23] MEDS: NS 1/2 1000 ML IV 1,000 ML IV SCH ×3 (04:20→21:22)
[2021-03-23] MEDS: HumuLIN R SUBCUT PRN ×3 (06:09→21:24)
[2021-03-23] MEDS: ACCUNEB 1.25 MG NEBULE NEB SCH ×3 (06:43→20:32)
[2021-03-23 07:13] LABS: BASOPHILS % (AUTO) 0.1 % (0.2-1.0); HEMATOCRIT 37.8 % (36.0-47.0); HEMOGLOBIN 12.9 g/dL (12.0-16.0); LYMPHOCYTES # (AUTO) 0.6 X10^3/uL (1.3-2.9); LYMPHOCYTES % (AUTO) 5.9 % (21.0-51.0); MEAN CORPUSCULAR HEMOGLOBIN 31.7 pg (27.0-34.0); MEAN CORPUSCULAR HGB CONC 34.1 g/dL (33.0-35.0); MEAN PLATELET VOLUME 8.5 fL (7.4-11.0); MONOCYTES # (AUTO) 0.4 x10^3/uL (0.3-0.8); MONOCYTES % (AUTO) 3.6 % (0.0-13.0); NEUTROPHILS # (AUTO) 9.1 x10^3/uL (2.2-4.8); NEUTROPHILS % (AUTO) 90.4 % (42.0-75.0); PLATELET COUNT 222 X10^3/uL (150.0-450.0); RED BLOOD COUNT 4.07 X10^6/uL (3.5-5.4); RED CELL DISTRIBUTION WIDTH 14.9 % (11.6-16.5); WHITE BLOOD COUNT 10.1 X10^3/uL (3.6-10.0)
[2021-03-23 07:45] LABS: BAND NEUTROPHILS % 3 % (0-10)
[2021-03-23 07:46] LABS: PLATELET MORPHOLOGY COMMENT NORMAL (NORMAL)
[2021-03-23 07:49] LABS: ALANINE AMINOTRANSFERASE 20 Units/L (12-78); ALBUMIN 2.2 g/dL (3.4-5.0); ALKALINE PHOSPHATASE 77 Units/L (46-116); ASPARTATE AMINO TRANSFERASE 23 Units/L (15-37); BLOOD UREA NITROGEN 22 mg/dL (7-18); CALCIUM 8.6 mg/dL (8.5-10.1); CARBON DIOXIDE 25.9 mmol/L (21-32); CHLORIDE 106 mmol/L (98-107); COR NA(FOR HYPERGLY) 145 mmol/L (136-145); CREATININE 0.67 mg/dL (0.55-1.02); SODIUM 140 mmol/L (136-145); TOTAL PROTEIN 6.3 g/dL (6.4-8.2); eGFR NON BLACK RACES > 60 (>60)
[2021-03-23] MEDS ORDERED: REMDESIVIR IV ONE (07:52)
[2021-03-23] MEDS ORDERED: NS 100 ML IV 100 ML ONE (07:54)
--- NOTE | 2021-03-23 08:09 | RAD ---
HISTORYPNEUMONIA F/U PMH:DIABETES, HX OF LUNG, LIVER, CERVICAL AND COLON CX PSH:TONSILS, LUNG, COLON, GB, LIVER, C-SEC X 2STUDYCHEST, 1 VIEWCOMPARISONPortable chest March 22FINDINGSThe trachea is midline. The cardiac silhouette is unremarkable. There are bibasilar infiltrates with mild worsening in the right lung base but mild improvement in the left lower lung field compared to yesterday's study. There is no effusion or pneumothorax. Stable linear parenchymal scarring is seen in the right upper lobe.. The bony thorax is unremarkable.IMPRESSIONBibasilar infiltrates with mild worsening in the right lung base mild improvement in the left lung base compared to yesterdays study there is no change in the linear density which may be parenchymal scarring in the right upper lung field.Electronically signed by: DELMIS WILEY (Mar 23, 2021 08:06:49)
[2021-03-23] MEDS: PULMICORT NEB TX 0.5 MG NEB SCH ×2 (08:20→20:32)
[2021-03-23] MEDS ORDERED: CULTURELLE PRO-WELL PROBIOTIC CAP PO SCH (09:00)
[2021-03-23] MEDS: GLUCOPHAGE XR 24-HR PO SCH (09:21)
[2021-03-23] MEDS: LOVENOX INJ 40 MG SYR SC SCH ×2 (09:22→21:23)
[2021-03-23] MEDS: LEVAQUIN PREMIX IV 750 MG 750 MG/150 ML BAG IV SCH (09:22)
[2021-03-23] MEDS: LANTUS SC SCH (09:22)
[2021-03-23] MEDS: REMDESIVIR 100 MG in NS 250 ML IV 250 ML IV SCH (09:23)
[2021-03-23] MEDS: PEPCID TAB 40 MG PO SCH ×2 (09:23→20:08)
[2021-03-23] MEDS: TRICOR TAB 160 MG PO SCH (09:24)
[2021-03-23] MEDS: SOLU-Medrol 125 MG VIAL IVP SCH (09:24)
[2021-03-23] MEDS: ZINC SULFATE PO SCH ×2 (09:24→20:08)
[2021-03-23] MEDS: VITAMIN D3 125 mcg (5,000 UNITS) PO SCH (09:24)
[2021-03-23] MEDS: VSL#3 PO SCH (09:24)
[2021-03-23] MEDS: ROBITUSSIN DM PO SCH ×4 (09:24→20:08)
[2021-03-23] MEDS: VITAMIN A PO SCH (09:24)
[2021-03-23] MEDS ORDERED: TESSALON PERLES PO ONE (11:45)
--- NOTE | 2021-03-23 14:57 | PCM.PROG ---
Progress Note Progress Note for Day of Date of Exam: 03/23/21 Subjective Subjective: Pt is a 65 year old female past medical history of Breast/Colon cancer, Type 2 Diabetes mellitus, admitted for COVID-19 pneumonia with hypoxia. This morning she reports her breathing has improved. She wants to going home today if she can. She is currently utilizing 4L nasal cannula supplemental oxygen. She did receive Actemra 400mg x1 dose (03/21). Labs/imaging: Wbc 10.1, Hgb 12.9, Plt 222, Na 140, K 3.8, Creatinine 0.67, Glucose 328, CRP 199>85, CXR: Bibasilar infiltrates with mild worsening in the right lung base mild improvement in the left lung base compared to yesterdays study there is no change in the linear density which may be parenchymal scarring in the right upper lung field. Pt is currently on pneumonia treatment protocol that includes: IVF 1/2 NS@30ml/h, Remdesivir, Solumedrol 80mg q12h, scheduled Bronchodilators, Antibiotics: IV Levaquin, immune supporting supplements, supplemental O2, SSI, I/S, Respiratory therapy consult, Pneumonia protocol. Pt received Solumedrol this morning and will discontinue any further doses to allow hyperglycemia to improve before discharge. Continue to wean/titrate supplemental oxygen as tolerated. Case management to get home oxygen set up in anticipation of possible discharge over the weekend. Will continue to monitor closely and follow up labs/imaging in the morning. Time spent on clinical assessment, reviewing labs and imaging, decision making, and documentation greater than 45 minutes. Past Medical Family Social History Past Med/Fam/Surg Hx: No changes since H&P Allergies: Allergies No Known Drug Allergies Allergy (Verified 03/20/21 23:09) Review of Systems ROS: No change since H&P Vital Signs and I&O's Vital Signs: Temperature 97.7 F Pulse Rate [Right] 84 Pulse Rate 81 Respiratory Rate 24 Blood Pressure [Right Arm] 154/67 Blood Pressure 149/67 O2 Sat by Pulse Oximetry 92 Intake and Output: Intake & Output 03/20/21 03/21/21 03/22/21 03/23/21 23:59 23:59 23:59 23:59 Intake Total 0 / 1900 1890 / 0 2075 Balance 190 / 1900 1889 1889 Physical Exam Oriented: Normal Eyes: Normal Ear: Normal Nose: Normal Throat: Normal Respiratory: Diminished and Rales Cardiovascular: Normal : Normal Auscultation: Bowel Sounds: Normal Tenderness: Normal Skin: Normal Musculoskeletal: Normal Psychiatric: Normal Mood Description: Calm Affect: Normal Speech Pattern: Clear and Appropriate Laboratory and Diagnostics Result Diagrams: 03/23/21 06:45 03/23/21 06:45 Labs: Laboratory WBC 10.1 X10^3/uL (3.6-10.0) H 03/23/21 06:45 RBC 4.07 X10^6/uL (3.5-5.4) 03/23/21 06:45 Hgb 12.9 g/dL (12.0-16.0) 03/23/21 06:45 Hct 37.8 % (36.0-47.0) 03/23/21 06:45 MCV 93.0 fL (80.0-100.0) 03/23/21 06:45 MCH 31.7 pg (27.0-34.0) 03/23/21 06:45 MCHC 34.1 g/dL (33.0-35.0) 03/23/21 06:45 RDW 14.9 % (11.6-16.5) 03/23/21 06:45 Plt Count 222 X10^3/uL (150.0-450.0) 03/23/21 06:45 Plt Count Comment Adequate (ADEQUATE) 03/23/21 06:45 MPV 8.5 fL (7.4-11.0) 03/23/21 06:45 Neut % (Auto) 90.4 % (42.0-75.0) H 03/23/21 06:45 Lymph % (Auto) 5.9 % (21.0-51.0) L 03/23/21 06:45 [place] % (Auto) 3.6 % (0.0-13.0) 03/23/21 06:45 Eos % (Auto) 0.0 % (0.9-2.9) L 03/23/21 06:45 Baso % (Auto) 0.1 % (0.2-1.0) L 03/23/21 06:45 Neut # (Auto) 9.1 x10^3/uL (2.2-4.8) H 03/23/21 06:45 Lymph # (Auto) 0.6 X10^3/uL (1.3-2.9) L 03/23/21 06:45 [place] # (Auto) 0.4 x10^3/uL (0.3-0.8) 03/23/21 06:45 Eos # (Auto) 0.0 x10^3/uL (0.0-0.2) 03/23/21 06:45 Baso # (Auto) 0.0 X10^3/uL (0.0-0.1) 03/23/21 06:45 Absolute Nucleated RBC 0.0 /100WBC 03/23/21 06:45 Total Counted 100 03/23/21 06:45 Neutrophils % (Manual) 86 % (39-76) H 03/23/21 06:45 Band Neutrophils % 3 % (0-10) 03/23/21 06:45 Lymphocytes % (Manual) 9 % (13-43) L 03/23/21 06:45 Monocytes % (Manual) 2 % (4-9) L 03/23/21 06:45 Plt Morphology Comment Normal (NORMAL) 03/23/21 06:45 RBC Morphology Normal (NORMAL) 03/23/21 06:45 D-Dimer 1.52 ug/ml (0.0-0.57) H* 03/20/21 22:55 Sample Site Lr 03/20/21 22:32 ABG pH 7.440 (7.35-7.45) 03/20/21 22:32 ABG pCO2 37.0 mmHg (35.0-45.0) 03/20/21 22:32 ABG pO2 50.0 mmHg (80.0-100.0) L 03/20/21 22:32 ABG HCO3 25.1 mmol/L (22-26) 03/20/21 22:32 ABG O2 Saturation 87.0 % (90-100) L 03/20/21 22:32 ABG Base Excess 1.1 mmol/L (-2.0-2.0) 03/20/21 22:32 Say Test Pos 03/20/21 22:32 A-a Gradient 53.0 mmHg 03/20/21 22:32 FiO2 21.0 03/20/21 22:32 Blood Gas Comments Maribell well ae 03/20/21 22:32 Sodium 140 mmol/L (136-145) 03/23/21 06:45 Corrected Sodium 145 mmol/L (136-145) 03/23/21 06:45 Potassium 3.8 mmol/L (3.5-5.1) 03/23/21 06:45 Chloride 106 mmol/L (98-107) 03/23/21 06:45 Carbon Dioxide 25.9 mmol/L (21-32) 03/23/21 06:45 BUN 22 mg/dL (7-18) H 03/23/21 06:45 Creatinine 0.67 mg/dL (0.55-1.02) 03/23/21 06:45 Est GFR (MDRD) Af Amer > 60 (>60) 03/23/21 06:45 Est GFR (MDRD) Non-Af > 60 (>60) 03/23/21 06:45 Glucose 328 mg/dL (65-99) H 03/23/21 06:45 POC Glucose (mg/dL) 382 mg/dL (65-99) H 03/23/21 11:41 Hemoglobin A1c 8.7 % 03/21/21 06:43 Calcium 8.6 mg/dL (8.5-10.1) 03/23/21 06:45 Corrected Calcium 10.0 mg/dL (8.5-10.1) 03/23/21 06:45 Magnesium 2.5 mg/dL (1.7-2.9) 03/22/21 04:40 Ferritin 1318 ng/mL (8-252) H 03/20/21 22:55 Total Bilirubin 0.40 mg/dL (0.2-1.0) 03/23/21 06:45 AST 23 Units/L (15-37) 03/23/21 06:45 ALT 20 Units/L (12-78) 03/23/21 06:45 Alkaline Phosphatase 77 Units/L (46-116) 03/23/21 06:45 C-Reactive Protein 85.00 mg/L (0-3.0) H 03/23/21 06:45 B-Natriuretic Peptide 242 pg/mL (0-79) H 03/20/21 22:55 Total Protein 6.3 g/dL (6.4-8.2) L 03/23/21 06:45 Albumin 2.2 g/dL (3.4-5.0) L 03/23/21 06:45 Globulin 4.1 g/dL (2.5-4.5) 03/23/21 06:45 Albumin/Globulin Ratio 0.5 Ratio (1.1-2.1) L 03/23/21 06:45 Plan (1) Pneumonia due to COVID-19 virus: Status: Acute Plan: ADMIT, SUPPLEMENTAL OXYGEN, NS AT 30 ML/HR, LEVAQUIN 750MG IV DAILY, REMDESIVIR 100MG IV DAILY, ASCORBIC ACID 1500MG IV Q6H, ALBUTEROL NEBS TID, PULMICORT NEBS BID, SOLU-MEDROL 80MG IV Q8H, LOVENOX 40MG SC Q12H, TRICOR 160MG PO DAILY, PEPCID 40MG PO BID, ROBITUSSIN DM 10ML PO QID, TUSSIONEX 5ML PO Q12H PRN, VSL 2 CAPS PO BID, VITAMIN A 10,000 UNITS PO DAILY, AND ZINC SULFATE 220MG PO BID. (2) Hypoxia: Status: Acute
[2021-03-23] MEDS: SNACK - Diabetic Appropriate PO SCH (21:23)
[2021-03-24] MEDS: ASCORBIC ACID INJ MULTI-DOSE VIAL 1,500 MG in NS 100 ML IV 100 ML IV SCH ×2 (02:09→09:33)
[2021-03-24] MEDS: HumuLIN R SUBCUT PRN (05:45)
[2021-03-24] MEDS: ACCUNEB 1.25 MG NEBULE NEB SCH ×2 (06:13→13:20)
[2021-03-24 06:15] LABS: BASOPHILS % (AUTO) 0.2 % (0.2-1.0); HEMATOCRIT 35.9 % (36.0-47.0); HEMOGLOBIN 12.5 g/dL (12.0-16.0); LYMPHOCYTES # (AUTO) 0.7 X10^3/uL (1.3-2.9); MEAN CORPUSCULAR HEMOGLOBIN 31.9 pg (27.0-34.0); MEAN CORPUSCULAR HGB CONC 34.7 g/dL (33.0-35.0); MEAN CORPUSCULAR VOLUME 91.8 fL (80.0-100.0); MEAN PLATELET VOLUME 9.5 fL (7.4-11.0); MONOCYTES # (AUTO) 0.6 x10^3/uL (0.3-0.8); MONOCYTES % (AUTO) 6.7 % (0.0-13.0); NEUTROPHILS # (AUTO) 7.1 x10^3/uL (2.2-4.8); NEUTROPHILS % (AUTO) 85.1 % (42.0-75.0); PLATELET COUNT 217 X10^3/uL (150.0-450.0); RED BLOOD COUNT 3.92 X10^6/uL (3.5-5.4); RED CELL DISTRIBUTION WIDTH 14.6 % (11.6-16.5); WHITE BLOOD COUNT 8.3 X10^3/uL (3.6-10.0)
[2021-03-24 06:47] LABS: ALANINE AMINOTRANSFERASE 18 Units/L (12-78); ALBUMIN 2.1 g/dL (3.4-5.0); ALKALINE PHOSPHATASE 73 Units/L (46-116); ASPARTATE AMINO TRANSFERASE 16 Units/L (15-37); BLOOD UREA NITROGEN 19 mg/dL (7-18); CALCIUM 8.1 mg/dL (8.5-10.1); CARBON DIOXIDE 29.4 mmol/L (21-32); CHLORIDE 105 mmol/L (98-107); COR CA(FOR HYPOALB) 9.6 mg/dL (8.5-10.1); COR NA(FOR HYPERGLY) 145 mmol/L (136-145); CREATININE 0.61 mg/dL (0.55-1.02); SODIUM 141 mmol/L (136-145); TOTAL PROTEIN 5.8 g/dL (6.4-8.2); eGFR NON BLACK RACES > 60 (>60)
[2021-03-24] MEDS: K-DUR TAB 20 MEQ PO PRN (06:52)
--- NOTE | 2021-03-24 07:51 | RAD ---
HISTORYFollow up pneumoniaSTUDYAP [id number]/10/2021FINDINGSContinued normal heart size and contour with similar distribution of bilateral mixed interstitial-alveolar infiltrates. No additional areas of consolidation, pneumothora x or pleural fluid demonstrated.IMPRESSIONNo significant change in appearance of bilateral pneumonia. Electronically signed by: JOHANNE NORTON (Mar 24, 2021 07:49:03)
[2021-03-24] MEDS: PULMICORT NEB TX 0.5 MG NEB SCH (08:15)
[2021-03-24] MEDS: LEVAQUIN PREMIX IV 750 MG 750 MG/150 ML BAG IV SCH (09:30)
[2021-03-24] MEDS: VITAMIN D3 125 mcg (5,000 UNITS) PO SCH (09:31)
[2021-03-24] MEDS: GLUCOPHAGE XR 24-HR PO SCH (09:31)
[2021-03-24] MEDS: REMDESIVIR 100 MG in NS 250 ML IV 250 ML IV SCH (09:31)
[2021-03-24] MEDS: ROBITUSSIN DM PO SCH ×2 (09:31→13:25)
[2021-03-24] MEDS: VITAMIN A PO SCH (09:32)
[2021-03-24] MEDS: NS 1/2 1000 ML IV 1,000 ML IV SCH (09:32)
[2021-03-24] MEDS: VSL#3 PO SCH (09:32)
[2021-03-24] MEDS: ZINC SULFATE PO SCH (09:32)
[2021-03-24] MEDS: PEPCID TAB 40 MG PO SCH (09:32)
[2021-03-24] MEDS: TRICOR TAB 160 MG PO SCH (09:33)
[2021-03-24] MEDS: LOVENOX INJ 40 MG SYR SC SCH (09:33)
[2021-03-24 13:02] VITALS: BP 176/77
== END 2021-03-24 16:10 | disposition home or self-care (01) | DRG 177 ==
LOC: ER 21:32 → OBS 03-21 06:05 → MED/SURG 03-21 17:36
PROVIDERS: ADMIT Internal Medicine; ATTEND Family Medicine
DX: R06.02 Shortness of breath; U07.1 COVID-19; R09.02 Hypoxemia; Z85.3 Personal history of malignant neoplasm of breast; R26.89 Other abnormalities of gait and mobility; Z85.038 Personal history of other malignant neoplasm of large intestine; J12.82 Pneumonia due to coronavirus disease 2019; E11.65 Type 2 diabetes mellitus with hyperglycemia